=== PATIENT | male | born 1995 | race Caucasian/White ===

== ENCOUNTER 2018-01-12 17:43 | Emergency (ER) | payer OTHER ==
[2018-01-12] MEDS: KETOROLAC 60 MG/2 ML VIAL (J1885) IM (20:50)
[2018-01-12] MEDS: OXYCODONE/APAP 5MG/325MG(BULK FOR ED) 1 TABLET PO (21:09)
== END 2018-01-12 21:16 | disposition home or self-care (01) ==
LOC: M ED 17:43
DX: S46.011A Strain of muscle(s) and tendon(s) of the rotator cuff of right shoulder, initial encounter (principal); X50.9XXA Other and unspecified overexertion or strenuous movements or postures, initial encounter; Y92.9 Unspecified place or not applicable; Y93.B1 Activity, exercise machines primarily for muscle strengthening; Y99.9 Unspecified external cause status
CPT/HCPCS: J1885